=== PATIENT | female | born 1995 | race Caucasian/White ===

== ENCOUNTER 2016-03-05 17:51 | Emergency (ER) | payer OTHER ==
[2016-03-05 17:59] VITALS: BP 132/71; PULSE 98; RESP 16; TEMP 97.7; O2SAT 97
--- NOTE | 2016-03-05 18:18 | EDPHY ---
HPI/HX/ROS/PE/MDM Narrative: CHIEF COMPLAINT: Head injury HPI: The patient is a 20-year-old female with a history of chronic migraines. Approximately 4 hours ago, she was snowboarding when she fell and struck her head. She was wearing a helmet. She may have had a brief moment of loss of consciousness but nothing longer than that. She was able to complete snowboarding and be checked out at the for states the patient. Since that time she complains of very mild headache, but no vomiting, vision changes or confusion. She denies any other injury. She denies neck pain. REVIEW OF SYSTEMS: Aside from elements discussed in the HPI, a comprehensive 10-point review of systems was reviewed and is negative. PMH: Migraines. SOCIAL HISTORY: Single. Student. PHYSICAL EXAM: General:Patient is alert, in no acute distress. Head: Atraumatic, nontender. ENT:Eyes are normal to inspection. ENT inspection normal. Neck: Normal inspection. Full range of motion. Extremities: Normal appearance. Full range of motion. Neuro: Oriented x3. Normal motor function. Normal sensory function. MDM: This patient presents with mild head injury occurring during snowboarding. She was wearing a helmet and injury was approximately 4 hours ago, both of which make her risk of intracranial bleed somewhat less. She has a completely normal and very reassuring exam. I discussed with her the fact that a CT scan would be necessary to officially rule out any head injury, but the patient has already had multiple scans of her head in the last few years. She and I both agree that she is not high risk and she would prefer to avoid CT scan. We discussed strict return precautions. General Time Seen by Provider: 03/05/16 18:09 Initial Vital Signs: Initial Vital Signs Temperature (C) 36.5 C 03/05/16 17:54 Heart Rate 98 03/05/16 17:54 Respiratory Rate 16 03/05/16 17:54 Blood Pressure 132/71 H 03/05/16 17:54 O2 Sat (%) 97 03/05/16 17:54 O2 Delivery Mode Room Air Allergies/Adverse Reactions: bismuth subsalicylate [From Pepto-Bismol] Allergy (Unknown, Unverified 03/05/16 17:52) Home Medications: Medication Instructions Recorded Citalopram 12/04/14 Cyclobenzaprine [Flexeril] 10 mg PO TID #15 tab 12/04/14 Vyvanse 12/04/14 Jessie 28 Tablet 12/04/14 Omeprazole 01/15/16 Topiramate [Topamax 25MG (*)] 25 mg PO DAILY 03/05/16 Departure - Departure Disposition: Home, Routine, Self-Care Clinical Impression: Concussion Condition: Good Instructions: Concussion (ED) Additional Instructions: Follow-up with your primary doctor within 72 hours. Return to the Emergency Department for severe headache, vomiting, vision changes, confusion, fever or other concerns. Referrals: OUT OF STATE,. [Primary Care Provider] - As per Instructions
== END 2016-03-05 18:25 | disposition home or self-care (01) ==
DX: S06.0X0A Concussion without loss of consciousness, initial encounter (principal); V00.311A Fall from snowboard, initial encounter; Y92.39 Other specified sports and athletic area as the place of occurrence of the external cause; Y93.23 Activity, snow (alpine) (downhill) skiing, snowboarding, sledding, tobogganing and snow tubing

== ENCOUNTER 2016-06-07 14:24 | Emergency (ER) | payer OTHER ==
--- NOTE | 2016-06-07 15:12 | EDPHY ---
H & P Stated Complaint: L SIDED ABDOMINAL PAIN, CHILLS, FEVER, DIZZY Time Seen by Provider: 06/07/16 15:12 - Personal History LMP (Females 10-55): Now Current Tetanus Diphtheria and Acellular Pertussis (TDAP): Yes Tetanus Vaccine Date: <10 years - Medical/Surgical History Hx Asthma: No Hx Chronic Respiratory Disease: No Hx Diabetes: No Hx Cardiac Disease: No Hx Renal Disease: No Hx Cirrhosis: No Hx Alcoholism: No Hx HIV/AIDS: No Hx Splenectomy or Spleen Trauma: No Other PMH: R achilles repair, tonsillectomy/adenoidectomy, MISCARRAGE 2 MONTHS AGO - Social History Smoking Status: Never smoked Constitutional: Initial Vital Signs Temperature (C) 37 C 06/07/16 14:42 Heart Rate 92 06/07/16 14:42 Respiratory Rate 16 06/07/16 14:42 Blood Pressure 108/68 06/07/16 14:42 O2 Sat (%) 97 06/07/16 14:42 O2 Delivery Mode Room Air Allergies/Adverse Reactions: bismuth subsalicylate [From Pepto-Bismol] Allergy (Unknown, Unverified 06/07/16 14:47) Home Medications: Medication Instructions Recorded Citalopram 12/04/14 Vyvanse 12/04/14 Jessie 28 Tablet 12/04/14 Omeprazole 01/15/16 Topiramate [Topamax 25MG (*)] 25 mg PO DAILY 03/05/16 HYDROcodone/APAP 10/325 [[place] 1 - 2 each PO Q4-6PRN PRN #20 tab 06/07/16 10/325] Ondansetron Odt [Zofran Odt 4 mg 4 mg PO Q4 PRN #10 tab 06/07/16 (RX)] Medical Decision Making - Diagnostics Imaging Results: Imaging Impressions Abdomen Ultrasound 06/07/16 15:26 Impression: Negative limited right lower quadrant ultrasound, specifically, there are no secondary findings to support a clinical diagnosis of acute appendicitis. Results called and discussed with Pavel Pryor MD on 06/07/2016 at 16:31 Pelvic/Renal Ultrasound 06/07/16 15:26 Impression: Negative pelvic ultrasound. Results called and discussed with Pavel Pryor MD on 06/07/2016 at 16:[address] 06/07/16 16:38 Impression: 1. Mild constipation. 2. Right lower quadrant mesenteric adenitis with a normal CT appearance of the appendix. Findings were discussed with Pavel Pryor MD at 17:41, on 06/07/2016. ED Course/Re-evaluation: CHIEF COMPLAINT: Abdominal pain, fever, headache. HISTORY OF PRESENT ILLNESS: The patient is a 20-year-old female who presents with sharp left-sided abdominal pain that began 3 days ago. She admits associated nausea, headache, and fever. The pain is worse with walking. She admits decreased appetite. She denies recent sickness, diarrhea, vomiting. She took a Zofran to no effect. She is 3 weeks into her menstrual cycle. She had a miscarriage during her previous. REVIEW OF SYSTEMS: A 10 point review of systems was performed and is negative with the exception of the elements mentioned in the history of present illness. PHYSICAL EXAM: HR, BP, O2 Sat, RR. Temp noted General Appearance: Alert, well hydrated, appropriate, and non-toxic appearing. Head: Atraumatic without scalp tenderness or obvious injury Eyes: Pupils equal, round, reactive to light and accommodation, EOMI, no trauma , no injection. Ears: Clear bilaterally, no perforation, normal landmarks Nose: Atraumatic, no rhinorrhea, clear. Throat: There is no erythema or exudates, no lesions, normal tonsils, mucus membranes moist. Neck: Supple, 2+ carotid upstroke, nontender, no lymphadenopathy. Respiratory: No retractions, no distress, no wheezes, and no accessory muscle use. Lungs are clear to auscultation bilaterally. Cardiovascular: Regular rate and rhythm, no murmurs, rubs, or gallops. Bilateral carotid, radial, dorsalis pedis, and posterior tibial pulses intact. Good capillary refill all extremities. Gastrointestinal: Abdomen is soft, non-distended, no masses, no rebound, no guarding, no peritoneal signs. RLQ tenderness. Musculoskeletal: Normal active ROM of all extremities, atraumatic. Neurological: Alert, appropriate, and interactive. The patient has normal DTRs and non-focal cranial nerves, motor, sensory, and cerebellar exam. Skin: No rashes, good turgor, no nodules on palpation. Past medical history: Miscarriage. Past surgical history: R Achilles repair, tonsillectomy/adenoidectomy, Family history: N/A. Social history: Student at [employer]. DIAGNOSTICS/PROCEDURES/CRITICAL CARE TIME: Study: Ultrasound of the: RLQ/pelvis Indication: Pain. Results: See Image Results section for official radiology report. The study was read by the radiologist. I viewed the images myself on the PACS system. DIFFERENTIAL DIAGNOSIS: The differential diagnosis for the patient's abdominal pain included but was not limited to ovarian cyst, pelvic inflammatory disease, ovarian torsion, urinary tract infection, ectopic , cholecystitis, and appendicitis. MEDICAL DECISION MAKIN-year-old female presents with 3 days of abdominal pain, headache, and fever. She is mostly tender in the RLQ. I am mostly suspicious for appendicitis or ovarian cyst. An IV was established and labs ordered including CBC, CHEM, and UA. RLQ/pelvic ultrasound ordered. 1L IV saline, 4mg IV Zofran, 1mg IV Dilaudid , 30mg IV Toradol administered. 1637: Ultrasound results conveyed to me by Dr. Varela, radiology. The appendix was not visualized. I have ordered an abdominal CT without contrast. 1744: CT results conveyed to me by Dr. Minaya, radiology, as mesenteric adenitis. I will prescribe Zofran and pain medications and send her home. 1750: Reassessed patient. Discussed results of CT scan. I spoke with he nima over FaceTime and informed her of the course and plan. 1800: Reassessed patient. She is still in a small amount of pain. She would like to be discharged with Phenergan and a school excuse. I have provided both. - Data Points Laboratory Results: Laboratory Results 06/07/16 16:55 06/07/16 15:30 06/07/16 06/07/16 06/07/16 16:55 15:30 15:30 WBC 4.62 10^3/uL 10^3/uL (3.80-9.50) RBC 4.38 10^6/uL 10^6/uL (4.18-5.33) Hgb 12.6 g/dL g/dL (12.6-16.3) Hct 37.2 % L % (38.0-47.0) MCV 84.9 fL fL (81.5-99.8) MCH 28.8 pg pg (27.9-34.1) MCHC 33.9 g/dL g/dL (32.4-36.7) RDW 11.9 % % (11.5-15.2) Plt Count 200 10^3/uL 10^3/uL (150-400) MPV 9.6 fL fL (8.7-11.7) Neut % (Auto) 49.5 % % (39.3-74.2) Lymph % (Auto) 37.2 % % (15.0-45.0) Hooker % (Auto) 12.3 % % (4.5-13.0) Eos % (Auto) 0.4 % L % (0.6-7.6) Baso % (Auto) 0.4 % % (0.3-1.7) Nucleat RBC Rel Count 0.0 % % (0.0-0.2) Absolute Neuts (auto) 2.28 10^3/uL 10^3/uL (1.70-6.50) Absolute Lymphs (auto) 1.72 10^3/uL 10^3/uL (1.00-3.00) Absolute Monos (auto) 0.57 10^3/uL 10^3/uL (0.30-0.80) Absolute Eos (auto) 0.02 10^3/uL L 10^3/uL (0.03-0.40) Absolute Basos (auto) 0.02 10^3/uL 10^3/uL (0.02-0.10) Absolute Nucleated RBC 0.00 10^3/uL 10^3/uL (0-0.01) Immature Gran % 0.2 % % (0.0-1.1) Immature Gran # 0.01 10^3/uL 10^3/uL (0.00-0.10) Platelet Estimate Sodium 137 mEq/L mEq/L (134-144) Potassium 4.7 mEq/L mEq/L (3.5-5.2) Chloride 106 mEq/L mEq/L (97-110) Carbon Dioxide 21 mEq/l L mEq/l (22-31) Anion Gap 10 mEq/L mEq/L (8-16) BUN 13 mg/dL mg/dL (7-23) Creatinine 0.7 mg/dL mg/dL (0.6-1.0) Estimated GFR > 60 Glucose 84 mg/dL mg/dL (70-100) Calcium 10.2 mg/dL mg/dL (8.5-10.4) Total Bilirubin 1.3 mg/dL mg/dL (0.1-1.4) Conjugated Bilirubin 0.8 mg/dL H mg/dL (0.0-0.5) Unconjugated Bilirubin 0.5 mg/dL mg/dL (0.0-1.1) AST 37 IU/L IU/L (14-46) ALT 25 IU/L IU/L (9-52) Alkaline Phosphatase 53 IU/L IU/L (38-126) Total Protein 8.0 g/dL g/dL (6.3-8.2) Albumin 4.7 g/dL g/dL (3.5-5.0) Lipase 101.0 IU/L IU/L (23-300) Beta HCG, Qual NEGATIVE Specimen Hemolysis 142 Urine Color Urine Appearance Urine pH Ur Specific Graham Urine Protein Urine Ketones Urine Blood Urine Nitrate Urine Bilirubin Urine Urobilinogen Ur Leukocyte Esterase Urine Glucose 06/07/16 06/07/16 15:30 15:20 WBC REJ RBC SHIRT IRONER Hgb SHIRT IRONER Hct SHIRT IRONER MCV SHIRT IRONER MCH SHIRT IRONER MCHC SHIRT IRONER RDW SHIRT IRONER Plt Count SHIRT IRONER MPV SHIRT IRONER Neut % (Auto) Not Reported Lymph % (Auto) Not Reported Hooker % (Auto) Not Reported Eos % (Auto) Not Reported Baso % (Auto) Not Reported Nucleat RBC Rel Count SHIRT IRONER Absolute Neuts (auto) Not Reported Absolute Lymphs (auto) Not Reported Absolute Monos (auto) Not Reported Absolute Eos (auto) Not Reported Absolute Basos (auto) Not Reported Absolute Nucleated RBC SHIRT IRONER Immature Gran % Not Reported Immature Gran # Not Reported Platelet Estimate Not Reported Sodium Potassium Chloride Carbon Dioxide Anion Gap BUN Creatinine Estimated GFR Glucose Calcium Total Bilirubin Conjugated Bilirubin Unconjugated Bilirubin AST ALT Alkaline Phosphatase Total Protein Albumin Lipase Beta HCG, Qual Specimen Hemolysis Urine Color YELLOW Urine Appearance MODERATELY TURBID Urine pH 7.0 (5.0-7.5) Ur Specific Graham 1.016 (1.002-1.030) Urine Protein NEGATIVE (NEGATIVE) Urine Ketones NEGATIVE (NEGATIVE) Urine Blood NEGATIVE (NEGATIVE) Urine Nitrate NEGATIVE (NEGATIVE) Urine Bilirubin NEGATIVE (NEGATIVE) Urine Urobilinogen NEGATIVE EU EU (0.2-1.0) Ur Leukocyte Esterase NEGATIVE (NEGATIVE) Urine Glucose NEGATIVE (NEGATIVE) Medications Given: Discontinued Medications Hydromorphone HCl (Dilaudid) 1 mg IVP EDNOW ONE Stop: 06/07/16 15:27 Last Admin: 06/07/16 16:29 Dose: 0.5 mg Hydromorphone HCl (Dilaudid) 1 mg IVP EDNOW ONE Stop: 06/07/16 16:58 Last Admin: 06/07/16 17:03 Dose: 1 mg Sodium Chloride (Ns) 1,000 mls @ 0 mls/hr IV ONCE ONE PRN Reason: Wide Open Stop: 06/07/16 15:27 Last Admin: 06/07/16 16:28 Dose: 1,000 mls Ketorolac Tromethamine (Toradol) 30 mg IVP EDNOW ONE Stop: 06/07/16 15:27 Last Admin: 06/07/16 16:29 Dose: 30 mg Ondansetron HCl (Zofran) 4 mg IVP EDNOW ONE Stop: 06/07/16 15:27 Last Admin: 06/07/16 16:29 Dose: 4 mg Departure - Departure Disposition: Home, Routine, Self-Care Clinical Impression: Mesenteric adenitis Condition: Good Instructions: Mesenteric Adenitis (ED) Additional Instructions: Follow up with your primary care provider for reevaluation. Return for any serious worsening of condition. Referrals: ARPITA NOGUERA MD [Other] - As per Instructions Stand Alone Forms: School Excuse Prescriptions: HYDROcodone/APAP 10/325 [[place] 10/325] 1 - 2 each PO Q4-6PRN PRN #20 tab PRN Reason: Pain, Moderate Ondansetron Odt [Zofran Odt 4 mg (RX)] 4 mg PO Q4 PRN #10 tab PRN Reason: Nausea/Vomiting, Use 1st Report Scribed for: Pavel Pryor Report Scribed by: Adam Wang Date of Report: 06/07/16 Time of Report: 15:25
[2016-06-07] MEDS ORDERED: ONDANSETRON 4 MG/2 ML VIAL IVP ONE (15:26)
[2016-06-07] MEDS ORDERED: KETOROLAC 30 MG/1 ML SDV IVP ONE (15:26)
[2016-06-07] MEDS ORDERED: NS 1,000 ML IV ONE (15:26)
[2016-06-07] MEDS ORDERED: HYDROmorphONE/DILAUDID 1 MG/ML SYR IVP ONE ×3 (15:26→17:54)
[2016-06-07 15:55] LABS: COLOR YELLOW; LEUKOCYTE ESTERASE,URINE NEGATIVE (NEGATIVE); NITRITE,URINE NEGATIVE (NEGATIVE)
[2016-06-07 16:08] LABS: ALANINE AMINOTRANSFERASE 25 IU/L (9-52); ALBUMIN 4.7 g/dL (3.5-5.0); ALKALINE PHOSPHATASE 53 IU/L (38-126); ANION GAP 10 mEq/L (8-16); ASPARTATE AMINOTRANSFERASE 37 IU/L (14-46); BILIRUBIN,TOTAL 1.3 mg/dL (0.1-1.4); BILIRUBIN-CONJUGATED 0.8 mg/dL (0.0-0.5); BILIRUBIN-UNCONJUGATED 0.5 mg/dL (0.0-1.1); CALCIUM 10.2 mg/dL (8.5-10.4); CARBON DIOXIDE 21 mEq/l (22-31); CHLORIDE 106 mEq/L (97-110); CREATININE 0.7 mg/dL (0.6-1.0); GLOMERULAR FILTRATION RATE > 60; GLUCOSE 84 mg/dL (70-100); POTASSIUM 4.7 mEq/L (3.5-5.2); SODIUM 137 mEq/L (134-144); SPECIMEN HEMOLYSIS 142
[2016-06-07] MEDS ORDERED: IOPAMIDOL (ISOVUE-300) 100 ML BTL IV ONE (17:01)
[2016-06-07 17:04] LABS: % IMMATURE GRANULYOCYTES 0.2 % (0.0-1.1); ABSOLUTE IMMATURE GRANULOCYTES 0.01 10^3/uL (0.00-0.10); ADD DIFF? NO; ADD MORPH? NO; ADD SCAN? NO; ATYPICAL LYMPHOCYTE FLAG 0 (0-99); FRAGMENT RBC FLAG 0 (0-99); HEMATOCRIT 37.2 % (38.0-47.0); HEMOGLOBIN 12.6 g/dL (12.6-16.3); LEFT SHIFT FLG 0 (0-99); LIPEMIA HEMOLYSIS FLAG 90 (0-99); MEAN CELL HEMOGLOBIN 28.8 pg (27.9-34.1); MEAN CELL HEMOGLOBIN CONCENTR. 33.9 g/dL (32.4-36.7); MEAN CELL VOLUME 84.9 fL (81.5-99.8); MEAN PLATELET VOLUME 9.6 fL (8.7-11.7); PLATELET CLUMPS FLAG 0 (0-99); PLATELET COUNT 200 10^3/uL (150-400); RED BLOOD CELL COUNT 4.38 10^6/uL (4.18-5.33); RED CELL DISTRIBUTION WIDTH 11.9 % (11.5-15.2)
[2016-06-07 17:05] VITALS: RESP 18; TEMP 98.2
[2016-06-07] MEDS ORDERED: PROMETHAZINE 25 MG PREPACK #4 BTL TAKEHOME ONE (18:03)
[2016-06-07 18:05] VITALS: BP 120/85; PULSE 65; O2SAT 95
== END 2016-06-07 18:22 | disposition home or self-care (01) ==
DX: I88.0 Nonspecific mesenteric lymphadenitis (principal)
CPT/HCPCS: 96374; J1170; J1885; J2405; Q9967

== ENCOUNTER 2016-10-24 20:03 | Emergency (ER) | payer OTHER ==
[2016-10-24] MEDS: METOCLOPRAMIDE 10 MG/2 ML VIAL IVP ONE (21:44)
[2016-10-24] MEDS: LORazepam 2 MG/ML INJ IVP ONE (21:48)
[2016-10-24] MEDS: DEXAMETHASONE 10 MG/ML VIAL IVP ONE (21:50)
[2016-10-24] MEDS: KETOROLAC 15 MG/1 ML SDV IVP ONE (21:53)
--- NOTE | 2016-10-24 22:36 | EDPHY ---
H & P Stated Complaint: productive cough, migraine, left ear pain x1 week Time Seen by Provider: 10/24/16 21:14 HPI/ROS: Chief complaint: Persistent cold symptoms, migraine headache History of present illness: This is a 21-year-old female who presents to the emergency department for evaluation and treatment of persistent cold symptoms. Patient states she has been sick for the last month. She primarily reports persistent cough with yellow sputum and occasional bright red blood as well as left ear pain. She states symptoms have waxed and waned but she has not been fully able to get over them. Further, she states today she started to develope a migraine headache. She reports a history of migraine headaches. This is typical in nature for her. She denies other associated signs or symptoms. Review of systems: A 10 point review of systems was obtained and other than described above was negative - Personal History LMP (Females 10-55): 22-28 Days Ago Current Tetanus/Diphtheria Vaccine: Yes Current Tetanus Diphtheria and Acellular Pertussis (TDAP): Yes Tetanus Vaccine Date: <10 years - Medical/Surgical History Hx Asthma: No Hx Chronic Respiratory Disease: No Hx Diabetes: No Hx Cardiac Disease: No Hx Renal Disease: No Hx Cirrhosis: No Hx Alcoholism: No Hx HIV/AIDS: No Hx Splenectomy or Spleen Trauma: No Other PMH: R achilles repair, tonsillectomy/adenoidectomy, ADHD, MISCARRAGE 2 MONTHS AGO - Social History Smoking Status: Never smoked - Physical Exam Exam: General Appearance: Alert, nontoxic. Eyes: Pupils equal and round no pallor or injection. ENT, Mouth: Mucous membranes moist. Respiratory: There are no retractions, lungs are clear to auscultation. Cardiovascular: Regular rate and rhythm. Gastrointestinal: Abdomen is soft and non tender, no masses, bowel sounds normal. Neurological: Alert and oriented x4. Cranial nerves 2-12 grossly intact. Strength and sensation intact and symmetrical. No meningismus. Skin: Warm and dry, no rashes. Musculoskeletal: Neck is supple non tender. Extremities are symmetrical, full range of motion. Psychiatric: Patient is oriented X 3, there is no agitation. Constitutional: Initial Vital Signs Temperature (C) 37.2 C 10/24/16 20:08 Heart Rate 108 H 10/24/16 20:08 Respiratory Rate 20 10/24/16 20:08 Blood Pressure 129/81 H 10/24/16 20:08 O2 Sat (%) 93 10/24/16 20:08 O2 Delivery Mode Room Air Allergies/Adverse Reactions: bismuth subsalicylate [From Pepto-Bismol] Allergy (Unknown, Unverified 06/07/16 14:47) Home Medications: Medication Instructions Recorded Citalopram 12/04/14 Vyvanse 12/04/14 Jessie 28 Tablet 12/04/14 Omeprazole 01/15/16 Topiramate [Topamax 25MG (*)] 25 mg PO DAILY 03/05/16 Ondansetron Odt [Zofran Odt 4 mg 4 mg PO Q4 PRN #10 tab 06/07/16 (RX)] Doxycycline Hyclate [Vibramycin 100 mg PO BID 7 Days cap 10/24/16 100 MG (*)] Medical Decision Making - Diagnostics Imaging Results: Imaging Impressions Chest X-Ray 10/24/16 21:20 Impression: Clear lungs. No pneumonia. Imaging: I viewed and interpreted images myself ED Course/Re-evaluation: Patient discussed with my secondary supervising physician Dr. Cal Mary. Patient presents to the emergency department with a primary concern of cold symptoms. She is nontoxic. Afebrile and vital signs are stable. Chest x-ray is negative. However, given length of time she has had cold symptoms I believe it appropriate to start her on antibiotics. She is started on doxycycline. Further she is reporting a migraine headache. She has a history of them and reports the headache she has this evening is similar in nature. There is nothing new or different today is compared to previous episodes. I do not believe further evaluation is therefore warranted. She is symptomatically treated with near resolution of symptoms. She is requesting to be discharged home. Home care is discussed. Return precautions are given. Patient voiced understanding and agreement with plan. Differential Diagnosis: Included but not limited to bronchitis, pneumonia, URI as well as migraine headache, tension headache, cluster headache, unlikely intracranial bleed, meningitis or mass - Data Points Medications Given: Discontinued Medications Dexamethasone (Decadron Injection) 10 mg IVP EDNOW ONE Stop: 10/24/16 21:22 Last Admin: 10/24/16 21:50 Dose: 10 mg Diphenhydramine HCl (Benadryl Injection) 25 mg IVP EDNOW ONE Stop: 10/24/16 21:22 Last Admin: 10/24/16 21:42 Dose: 25 mg Doxycycline Hyclate (Doxycycline Hyclate) 100 mg PO EDNOW ONE PRN Reason: Protocol Stop: 10/24/16 22:37 Last Admin: 10/24/16 22:51 Dose: 100 mg Ketorolac Tromethamine (Toradol) 15 mg IVP EDNOW ONE Stop: 10/24/16 21:22 Last Admin: 10/24/16 21:53 Dose: 15 mg Lorazepam (Ativan Injection) 1 mg IVP EDNOW ONE Stop: 10/24/16 21:22 Last Admin: 10/24/16 21:48 Dose: 1 mg Metoclopramide HCl (Reglan Injection) 10 mg IVP EDNOW ONE Stop: 10/24/16 21:22 Last Admin: 10/24/16 21:44 Dose: 10 mg Departure - Departure Disposition: Home, Routine, Self-Care Clinical Impression: Acute bronchitis Qualifiers: Bronchitis organism: unspecified organism Qualified Code(s): J20.9 - Acute bronchitis, unspecified Acute headache Qualifiers: Headache type: unspecified Intractability: not intractable Qualified Code(s): R51 - Headache Condition: Good Instructions: Acute Bronchitis (ED), Acute Headache (ED) Additional Instructions: Follow-up with your primary care doctor for recheck If symptoms worsen or new symptoms develop return to the emergency room for recheck Referrals: BLAD,ARPITA [Other] - As per Instructions Stand Alone Forms: School Excuse Prescriptions: Doxycycline Hyclate [Vibramycin 100 MG (*)] 100 mg PO BID 7 Days cap
[2016-10-24] MEDS: DOXYCYCLINE HYCLATE 100 MG CAP/TAB PO ONE (22:51)
[2016-10-24 22:57] VITALS: BP 117/77; PULSE 93; RESP 16; TEMP 98.8; O2SAT 96
== END 2016-10-24 22:57 | disposition home or self-care (01) ==
DX: J20.9 Acute bronchitis, unspecified (principal)
CPT/HCPCS: 96374; J1100; J1200; J1885; J2060; J2765

== ENCOUNTER 2017-01-19 19:43 | Emergency (ER) | payer OTHER ==
--- NOTE | 2017-01-19 19:53 | EDPHY ---
H & P Smoking Status: Never smoked Time Seen by Provider: 01/19/17 19:52 HPI/ROS: Chief complaint. Dizzy, tingling HPI. 21-year-old female presents emergency department with multiple complaints. She tells me that she was walking on campus yesterday and she started having tingling in her left hand which then progressed to left arm pain and chest pain and shortness of breath. She has nausea with eating. She describes the chest discomfort as a weight. She notes shortness of breath and cough. No fever. She says it feels like the onset of a migraine. She says that touching her left arm makes her dizzy. Mild epigastric pain. No swelling or weakness to arms or legs. She has had similar symptoms previously ROS Constitutional. no fever/chills, no weakness Eyes. no problems with vision ENT. no sore throat, no nasal drainage Cardiovascular. Chest pain Respiratory. Shortness of breath and cough Abdominal. Epigastric pain and nausea . no problems urinating MS. no calf pain/swelling, no neck/back pain, no joint pain Skin. no rash Lymph. no swollen glands Neuro. Headache and tingling left hand (Britton Tao) Past Medical/Surgical History: Past medical history Achilles repair, tonsillectomy, adenoidectomy, attention deficit hyperactivity disorder, miscarriage, migraines (Britton Tao) Social History: Single, nonsmoker, no alcohol (Britton Tao) Physical Exam: General Appearance: Alert well-developed female mild distress vital signs are stable with initial heart rate 103. Eyes: Pupils equal and round no pallor or injection. ENT, Mouth: Mucous membranes are moist. Respiratory: There are no retractions, lungs are clear to auscultation. Cardiovascular: Regular rate and rhythm. Gastrointestinal: Abdomen is soft and nontender, no masses, bowel sounds normal. Neurological: Awake and alert, sensory and motor exams grossly normal. Skin: Warm and dry, no rashes. Musculoskeletal: Neck is supple nontender. Extremities symmetrical, full range of motion. Psychiatric: Patient is oriented X 3, there is no agitation. (Britton Tao) Constitutional: Initial Vital Signs Temperature (C) 36.5 C 01/19/17 19:45 Heart Rate 103 H 01/19/17 19:45 Respiratory Rate 18 01/19/17 19:45 Blood Pressure 127/91 H 01/19/17 19:45 O2 Sat (%) 96 01/19/17 19:45 O2 Delivery Mode Room Air Allergies/Adverse Reactions: bismuth subsalicylate [From Pepto-Bismol] Allergy (Unknown, Verified 01/19/17 19 :49) Home Medications: Medication Instructions Recorded Citalopram 12/04/14 Vyvanse 12/04/14 Jessie 28 Tablet 12/04/14 Omeprazole 01/15/16 Topiramate [Topamax 25MG (*)] 25 mg PO DAILY 03/05/16 Ondansetron Odt [Zofran Odt 4 mg 4 mg PO Q4 PRN #10 tab 06/07/16 (RX)] Spironolactone 01/19/17 Medical Decision Making - Diagnostics EKG Interpretation: EKG interpreted by me shows normal sinus rhythm with normal interval and axis. QRS is normal there is no significant ST elevation or depression. There is no arrhythmia. The rate is 86 (Britton Tao) Imaging Results: Imaging Impressions Chest X-Ray 01/19/17 20:18 Impression: Clear lungs. Negative portable chest. One-view chest x-ray interpreted by me is normal (Britton Tao) Procedures: IV normal saline, monitor (Britton Tao) ED Course/Re-evaluation: Re-evaluation at 9:05 p.m.. Patient is stable. She complains of her left arm hurting and the IV in her right arm hurting. She would like some ibuprofen. This is ordered for her. Patient and I discussed EKG and imaging study results. We discussed possible etiologies and if workup is normal she will be discharged with encouragement to follow up with regular physician. She expresses understanding and agreement ( Britton Tao) This patient was signed over to me at shift change only to check her laboratory studies. If the studies are normal, the plan is to discharge the patient home. 9:45 p.m.-labs are normal, discussed with the patient, will discharge home. ( Simi Jones) Differential Diagnosis: I think this is likely anxiety. I considered pulmonary embolus, pneumonia, DVT, acute coronary syndrome (Britton Tao) Care Turn Over: Dr. Jones at 2105 (Britton Tao) - Data Points Laboratory Results: Laboratory Results 01/19/17 20:55 01/19/17 20:55 01/19/17 01/19/17 01/19/17 20:55 20:55 20:55 WBC RBC Hgb Hct MCV MCH MCHC RDW Plt Count MPV Neut % (Auto) Lymph % (Auto) [place] % (Auto) Eos % (Auto) Baso % (Auto) Nucleat RBC Rel Count Absolute Neuts (auto) Absolute Lymphs (auto) Absolute Monos (auto) Absolute Eos (auto) Absolute Basos (auto) Absolute Nucleated RBC Immature Gran % Immature Gran # D-Dimer < 0.27 ug/mLFEU ug/mLFEU (0.00-0.50) Sodium 137 mEq/L mEq/L (134-144) Potassium 4.7 mEq/L mEq/L (3.5-5.2) Chloride 107 mEq/L mEq/L (97-110) Carbon Dioxide 21 mEq/l L mEq/l (22-31) Anion Gap 9 mEq/L mEq/L (8-16) BUN 15 mg/dL mg/dL (7-23) Creatinine 0.7 mg/dL mg/dL (0.6-1.0) Estimated GFR > 60 Glucose 90 mg/dL mg/dL (70-100) Calcium 9.9 mg/dL mg/dL (8.5-10.4) Troponin I 0.015 ng/mL ng/mL (0.000-0.034) Beta HCG, Qual NEGATIVE Specimen Hemolysis 152 01/19/17 20:55 WBC 5.45 10^3/uL 10^3/uL (3.80-9.50) RBC 5.12 10^6/uL 10^6/uL (4.18-5.33) Hgb 15.1 g/dL g/dL (12.6-16.3) Hct 43.8 % % (38.0-47.0) MCV 85.5 fL fL (81.5-99.8) MCH 29.5 pg pg (27.9-34.1) MCHC 34.5 g/dL g/dL (32.4-36.7) RDW 12.2 % % (11.5-15.2) Plt Count 265 10^3/uL 10^3/uL (150-400) MPV 9.6 fL fL (8.7-11.7) Neut % (Auto) 53.0 % % (39.3-74.2) Lymph % (Auto) 37.2 % % (15.0-45.0) [place] % (Auto) 8.6 % % (4.5-13.0) Eos % (Auto) 0.6 % % (0.6-7.6) Baso % (Auto) 0.4 % % (0.3-1.7) Nucleat RBC Rel Count 0.0 % % (0.0-0.2) Absolute Neuts (auto) 2.89 10^3/uL 10^3/uL (1.70-6.50) Absolute Lymphs (auto) 2.03 10^3/uL 10^3/uL (1.00-3.00) Absolute Monos (auto) 0.47 10^3/uL 10^3/uL (0.30-0.80) Absolute Eos (auto) 0.03 10^3/uL 10^3/uL (0.03-0.40) Absolute Basos (auto) 0.02 10^3/uL 10^3/uL (0.02-0.10) Absolute Nucleated RBC 0.00 10^3/uL 10^3/uL (0-0.01) Immature Gran % 0.2 % % (0.0-1.1) Immature Gran # 0.01 10^3/uL 10^3/uL (0.00-0.10) D-Dimer Sodium Potassium Chloride Carbon Dioxide Anion Gap BUN Creatinine Estimated GFR Glucose Calcium Troponin I Beta HCG, Qual Specimen Hemolysis Medications Given: Discontinued Medications Sodium Chloride (Ns) 1,000 mls @ 0 mls/hr IV EDNOW ONE; Wide Open PRN Reason: Protocol Stop: 01/19/17 20:18 Last Admin: 01/19/17 20:52 Dose: 1,000 mls Ibuprofen (Motrin) 600 mg PO EDNOW ONE Stop: 01/19/17 21:09 Last Admin: 01/19/17 21:14 Dose: 600 mg Departure - Departure Disposition: Home, Routine, Self-Care Clinical Impression: Chest pain Qualifiers: Chest pain type: other chest pain Qualified Code(s): R07.89 - Other chest pain Condition: Good Instructions: Chest Pain (ED) Additional Instructions: Continue your regular medications as they have been prescribed. Ibuprofen 600 mg every 6 hr for discomfort. Return for worsening chest discomfort, trouble breathing, weakness to hand. Re-evaluation in 1-2 days for continuing symptoms Referrals: [facility] [Outside] - 1-2 days without fail Marysol Esparza MD [[facility] [place]] - As per Instructions
[2017-01-19] MEDS ORDERED: NS 1,000 ML IV ONE (20:17)
--- NOTE | 2017-01-19 20:43 | CPEKG ---
Heart Rate: 86 RR Interval: 698 P-R Interval: 160 QRSD Interval: 68 QT Interval: 364 QTC Interval: 436 P [place]: 63 QRS [place]: 60 T Wave [place]: 27 EKG Severity - NORMAL ECG - EKG Impression: SINUS RHYTHM Electronically Signed By: Britton Tao 19-Jan-2017 20:54:40
[2017-01-19 21:03] LABS: % IMMATURE GRANULYOCYTES 0.2 % (0.0-1.1); ABSOLUTE IMMATURE GRANULOCYTES 0.01 10^3/uL (0.00-0.10); ADD DIFF? NO; ADD MORPH? NO; ADD SCAN? NO; ATYPICAL LYMPHOCYTE FLAG 0 (0-99); FRAGMENT RBC FLAG 0 (0-99); HEMATOCRIT 43.8 % (38.0-47.0); HEMOGLOBIN 15.1 g/dL (12.6-16.3); LEFT SHIFT FLG 0 (0-99); LIPEMIA HEMOLYSIS FLAG 90 (0-99); MEAN CELL HEMOGLOBIN 29.5 pg (27.9-34.1); MEAN CELL HEMOGLOBIN CONCENTR. 34.5 g/dL (32.4-36.7); MEAN CELL VOLUME 85.5 fL (81.5-99.8); MEAN PLATELET VOLUME 9.6 fL (8.7-11.7); PLATELET CLUMPS FLAG 0 (0-99); PLATELET COUNT 265 10^3/uL (150-400); RED BLOOD CELL COUNT 5.12 10^6/uL (4.18-5.33); RED CELL DISTRIBUTION WIDTH 12.2 % (11.5-15.2)
[2017-01-19] MEDS ORDERED: IBUPROFEN 600 MG TAB PO ONE (21:08)
[2017-01-19 21:14] LABS: ANION GAP 9 mEq/L (8-16); CALCIUM 9.9 mg/dL (8.5-10.4); CARBON DIOXIDE 21 mEq/l (22-31); CHLORIDE 107 mEq/L (97-110); CREATININE 0.7 mg/dL (0.6-1.0); GLOMERULAR FILTRATION RATE > 60; GLUCOSE 90 mg/dL (70-100); POTASSIUM 4.7 mEq/L (3.5-5.2); SODIUM 137 mEq/L (134-144); SPECIMEN HEMOLYSIS 152
[2017-01-19 21:16] VITALS: O2SAT 99
[2017-01-19 21:25] LABS: TROPONIN I 0.015 ng/mL (0.000-0.034)
[2017-01-19 21:59] VITALS: BP 116/72; PULSE 78; RESP 18; TEMP 98.2
== END 2017-01-19 22:01 | disposition home or self-care (01) ==
DX: R07.89 Other chest pain (principal); E86.9 Volume depletion, unspecified

== ENCOUNTER 2017-08-13 14:54 | Emergency (ER) | payer OTHER ==
[2017-08-13 15:03] VITALS: BP 125/80
--- NOTE | 2017-08-13 15:16 | EDPHY ---
H & P Time Seen by Provider: 08/13/17 15:09 HPI/ROS: CHIEF COMPLAINT: Blisters on both feet HISTORY OF PRESENT ILLNESS: Patient was wearing high heels for her birthday 2 days ago developed blisters on both feet on the plantar surface of the metatarsals on both sides. 1 on the right the blister popped. It is painful to palpation but no surrounding redness and no fever. REVIEW OF SYSTEMS: Otherwise negative PAST MEDICAL HISTORY: Includes Achilles surgery, miscarriage, attention deficit hyperactivity disorder, migraine headaches Social history: Here with her parents General Appearance: Alert and conversant, cooperative. Blister with a 1 x 1 cm open area on the ball of the right foot for, multiple blisters that are still covered on the balls of both feet. 1 on the ball of the left foot has popped spontaneously toward area closest to the toes, draining spontaneously. No surrounding erythema or lymphangitis. No fluctuance. Emergency Department course/MDM: Presents with friction blisters without evidence of cellulitis or other infection. Wound care discussed. Further treatment discussed with the parents who have their recently purchased wound/1st aid kit with them. Smoking Status: Never smoked Constitutional: Initial Vital Signs Temperature (C) 36.6 C 08/13/17 14:58 Heart Rate 146 H 08/13/17 14:58 Respiratory Rate 18 08/13/17 14:58 Blood Pressure 125/80 H 08/13/17 14:58 O2 Sat (%) 95 08/13/17 14:58 O2 Delivery Mode Room Air Allergies/Adverse Reactions: bismuth subsalicylate [From Pepto-Bismol] Allergy (Unknown, Verified 01/19/17 19 :49) Home Medications: Medication Instructions Recorded Citalopram 12/04/14 Vyvanse 12/04/14 Jessie 28 Tablet 12/04/14 Topiramate [Topamax 25MG (*)] 25 mg PO DAILY 03/05/16 Ondansetron Odt [Zofran Odt 4 mg 4 mg PO Q4 PRN #10 tab 06/07/16 (RX)] MDM/Departure - Depart Disposition: Home, Routine, Self-Care Clinical Impression: Blister of foot without infection Qualifiers: Encounter type: initial encounter Laterality: unspecified laterality Qualified Code(s): S90.829A - Blister (nonthermal), unspecified foot, initial encounter Condition: Good Instructions: Blister (ED) Referrals: Britton Chiu DPM [Doctor of Podiatric Medicine] - 5-7 days, if not improved (family reunification specialist referral if you are not better, or any worsening.)
== END 2017-08-13 15:43 | disposition home or self-care (01) ==
DX: S90.821A Blister (nonthermal), right foot, initial encounter (principal); S90.822A Blister (nonthermal), left foot, initial encounter; X58.XXXA Exposure to other specified factors, initial encounter; Y99.8 Other external cause status; Y93.89 Activity, other specified

== ENCOUNTER 2018-04-05 11:55 | Emergency (ER) | payer OTHER ==
--- NOTE | 2018-04-05 12:49 | EDPHY ---
H & P Time Seen by Provider: 04/05/18 12:48 HPI/ROS: CHIEF COMPLAINT: Right-sided chest pain HISTORY OF PRESENT ILLNESS: Patient started getting sick about a week ago and she developed cough and felt tired felt like he had cold symptoms. 3 days ago she had "wine night" with friends and subsequently had about a day of persistent nausea and vomiting and retching. After this she developed right- sided chest pain which radiates to her back. She was still symptomatic yesterday and today. Pain in her right chest is moderate at rest, severe with coughing or movement. Not associated with hemoptysis or leg swelling. Radiates to the back. REVIEW OF SYSTEMS: Eye: no change in vision ENT: no sore throat Cardiac: HPI Pulmonary: HPI Abdomen: Vomiting is resolved, no diarrhea or abdominal pain. Musculoskeletal: no back pain Skin: no rash Neuro: no headache Constitutional: no fever : no urinary symptoms A comprehensive 10 point review of systems is otherwise negative aside from elements mentioned in the history of present illness. PAST MEDICAL HISTORY: Includes tonsillectomy, Achilles repair, elbow fracture, attention deficit hyperactivity disorder, miscarriage, migraine headaches Family history negative for venous thromboembolism. Social history: Nonsmoker General Appearance: Alert and conversant, cooperative. Eyes: No scleral icterus. ENT, Mouth: Normal mucous membranes. Respiratory: Normal respiratory effort, breath sounds equal, lungs are clear to auscultation. Splinting but no crepitus or crackles or rales. Cardiovascular: Regular rate and rhythm. Gastrointestinal: Abdomen is soft and non tender. Neurological: Alert, face symmetric, normal motor and sensory in extremities. Skin: Warm and dry, no rashes. Musculoskeletal: No calf tenderness. She has chest wall tenderness on the right lateral side just above her breast. Psychiatric: Not agitated. Emergency Department course/MDM: Chest x-ray shows no evidence of infiltrate or pneumonia, D-dimer is negative with low pretest probability for PE. This is not consistent with ACS or cardiac problem. I think vascular dissection would be unlikely. The patient did have a recent evaluation for a or lump near her right breast by our cancer center, she asked if it could be due to that but I told her that I could not give her definitive answer about her lump in the emergency department. She will be referred for follow-up to a surgeon. 1335: Results discussed in detail with patient. More likely pleurisy with negative chest x-ray and negative D-dimer, right- sided pleuritic chest pain after URI symptoms. Nonsteroidal and small dose Percocet. Smoking Status: Never smoked Constitutional: Initial Vital Signs Temperature (C) 36.9 C 04/05/18 12:02 Heart Rate 88 04/05/18 12:02 Respiratory Rate 16 04/05/18 12:02 Blood Pressure 124/82 H 04/05/18 12:02 O2 Sat (%) 97 04/05/18 12:02 O2 Delivery Mode Room Air Allergies/Adverse Reactions: bismuth subsalicylate [From Pepto-Bismol] Allergy (Unknown, Verified 04/05/18 12 :01) Home Medications: Medication Instructions Recorded Citalopram 12/04/14 Vyvanse 12/04/14 Jessie 28 Tablet 12/04/14 Topiramate [Topamax 25MG (*)] 25 mg PO DAILY 03/05/16 Ondansetron Odt [Zofran Odt 4 mg 4 mg PO Q4 PRN #10 tab 06/07/16 (RX)] oxyCODONE/APAP 5/325 [Percocet] 1 - 2 tab PO Q4-6PRN PRN #11 tab 04/05/18 Medical Decision Making - Diagnostics Imaging Results: Imaging Impressions Chest X-Ray 04/05/18 12:27 Impression: Suspect airways disease. No pneumonia. Imaging: I viewed and interpreted images myself Differential Diagnosis: Differential diagnosis considered for chest pain including but not limited to myocardial ischemia, aortic dissection, pericarditis, pulmonary embolus, chest wall pain, pleural inflammation and pulmonary infectious causes. - Data Points Laboratory Results: Laboratory Results 04/05/18 12:30 04/05/18 12:30 04/05/18 04/05/18 04/05/18 12:30 12:30 12:30 WBC RBC Hgb Hct MCV MCH MCHC RDW Plt Count MPV Neut % (Auto) Lymph % (Auto) [place] % (Auto) Eos % (Auto) Baso % (Auto) Nucleat RBC Rel Count Absolute Neuts (auto) Absolute Lymphs (auto) Absolute Monos (auto) Absolute Eos (auto) Absolute Basos (auto) Absolute Nucleated RBC Immature Gran % Immature Gran # D-Dimer < 0.27 ug/mLFEU ug/mLFEU (0.00-0.50) Sodium 137 mEq/L mEq/L (135-145) Potassium 3.6 mEq/L mEq/L (3.5-5.2) Chloride 106 mEq/L mEq/L (97-110) Carbon Dioxide 23 mEq/l mEq/l (22-31) Anion Gap 8 mEq/L mEq/L (6-14) BUN 11 mg/dL mg/dL (7-23) Creatinine 0.8 mg/dL mg/dL (0.6-1.0) Estimated GFR > 60 Glucose 86 mg/dL mg/dL (70-100) Calcium 9.6 mg/dL mg/dL (8.5-10.4) Beta HCG, Qual NEGATIVE 04/05/18 12:30 WBC 4.71 10^3/uL 10^3/uL (3.80-9.50) RBC 5.05 10^6/uL 10^6/uL (4.18-5.33) Hgb 14.5 g/dL g/dL (12.6-16.3) Hct 43.7 % % (38.0-47.0) MCV 86.5 fL fL (81.5-99.8) MCH 28.7 pg pg (27.9-34.1) MCHC 33.2 g/dL g/dL (32.4-36.7) RDW 12.8 % % (11.5-15.2) Plt Count 270 10^3/uL 10^3/uL (150-400) MPV 9.7 fL fL (8.7-11.7) Neut % (Auto) 38.5 % L % (39.3-74.2) Lymph % (Auto) 50.1 % H % (15.0-45.0) [place] % (Auto) 10.2 % % (4.5-13.0) Eos % (Auto) 0.4 % L % (0.6-7.6) Baso % (Auto) 0.6 % % (0.3-1.7) Nucleat RBC Rel Count 0.0 % % (0.0-0.2) Absolute Neuts (auto) 1.81 10^3/uL 10^3/uL (1.70-6.50) Absolute Lymphs (auto) 2.36 10^3/uL 10^3/uL (1.00-3.00) Absolute Monos (auto) 0.48 10^3/uL 10^3/uL (0.30-0.80) Absolute Eos (auto) 0.02 10^3/uL L 10^3/uL (0.03-0.40) Absolute Basos (auto) 0.03 10^3/uL 10^3/uL (0.02-0.10) Absolute Nucleated RBC 0.00 10^3/uL 10^3/uL (0-0.01) Immature Gran % 0.2 % % (0.0-1.1) Immature Gran # 0.01 10^3/uL 10^3/uL (0.00-0.10) D-Dimer Sodium Potassium Chloride Carbon Dioxide Anion Gap BUN Creatinine Estimated GFR Glucose Calcium Beta HCG, Qual Medications Given: Discontinued Medications Fentanyl (Sublimaze) 50 mcg IVP EDNOW ONE Stop: 04/05/18 13:00 Last Admin: 04/05/18 13:38 Dose: 50 mcg Ibuprofen (Motrin) 600 mg PO EDNOW ONE Stop: 04/05/18 13:00 Last Admin: 04/05/18 13:38 Dose: 600 mg Departure - Departure Disposition: Home, Routine, Self-Care Clinical Impression: Pleurisy Chest pain Qualifiers: Chest pain type: unspecified Qualified Code(s): R07.9 - Chest pain, unspecified Condition: Good Instructions: Chest Pain (ED), Pleurisy (ED) Additional Instructions: Oral ibuprofen 600 mg every 8 hr for the next week for pain. You have been referred to the practice of Dr. Lima and Dr. Ross for evaluation of your right chest lump. Referrals: Melquiades Chanel MD [Medical Doctor] - As per Instructions Isaura Ross MD [Medical Doctor] - As per Instructions Carl Lima MD [Medical Doctor] - As per Instructions Stand Alone Forms: School Excuse Prescriptions: oxyCODONE/APAP 5/325 [Percocet] 1 - 2 tab PO Q4-6PRN PRN #11 tab PRN Reason: Pain
[2018-04-05] MEDS ORDERED: fentaNYL 100 MCG/2 ML INJ IVP ONE (12:59)
[2018-04-05] MEDS ORDERED: IBUPROFEN 600 MG TAB PO ONE (12:59)
[2018-04-05 13:06] LABS: PLATELET COUNT 270 10^3/uL (150-400)
[2018-04-05 13:59] VITALS: BP 122/88
== END 2018-04-05 13:59 | disposition home or self-care (01) ==
DX: R07.89 Other chest pain (principal); R09.1 Pleurisy
CPT/HCPCS: 96374; J3010

== ENCOUNTER 2018-07-09 11:50 | Emergency (ER) | payer OTHER | END 2018-07-09 12:23 | disposition home or self-care (01) ==

== ENCOUNTER 2018-07-11 22:09 | Emergency (ER) | payer OTHER | END 2018-07-12 00:03 | disposition home or self-care (01) ==